=== PATIENT | female | born 1955 | race Caucasian/White ===

== ENCOUNTER → 2023-04-01 14:17 | Outpatient (CLI) | payer OTHER, SELFPAY ==
--- NOTE | ~2023-04-01 | XR_ITS ---
XR knee RT 3V 04/01/2023 14:41 Indication: Right knee pain Procedure: 4 views right knee Comparison: No prior studies for comparison. Findings: There is mild tricompartment osteoarthritis of the right knee. No fracture, subluxation or dislocation. No joint effusion. No foreign bodies. Impression: 1: Mild osteoarthritis of the right knee. Reviewed, dictated and finalized at location B. Impression: 1: Mild osteoarthritis of the right knee.
== END ==
PROVIDERS: PCP Internal Medicine; Visit Provider Internal Medicine
DX: M17.11 Unilateral primary osteoarthritis, right knee (principal)
CPT/HCPCS: 73562

== ENCOUNTER 2024-11-28 15:21 | Outpatient (CLI) | payer OTHER, SELFPAY ==
--- NOTE | ~2024-11-28 | US_ITS ---
EXAM: PELVIC ULTRASOUND HISTORY: N95.0 - Postmenopausal bleeding COMPARISON: Reference is made to the CT examination of the abdomen and pelvis dated 03/04/2014 FINDINGS: UTERUS: 9.4 x 4.6 x 6.cm. The endometrial complex measurement ranges from 14.8 to 19.7 mm, markedly thickened for a patient of this age. The endometrial complex is of mixed echogenicity without increased vascularity containing well-circum scribed anechoic foci, the largest measuring 17 x 16 x 18 mm. Within the lower uterine segment, is a focus of mixed echogenicity measuring 14 x 9 x 9 mm. Unfortun ately, color interrogation of this area was not included on the submitted images. Within the uterus, to the left of midline is a complex focus of mixed echogenicity measuring 20.6 x 2 0.7 x 20.9 mm, possibly a uterine fibroid. Although, one would suspect the a fibroid would be densely calcified in a patient of this age. This may represent postoperative change from rectovaginal fistul a repair. Unfortunately, color interrogation of this area was not included on the submitted images. RIGHT OVARY: Despite prolonged interrogation, the right ovary was not visualized. LEFT OVARY: Despite prolonged interrogation, the left ovary was not visualized. No free fluid is identified within the pelvis. IMPRESSION: Markedly thickened and irregular endometrial complex, for which direct visualization is recommended. Additional findings within the uterus and lower uterine segment which may represent postoperative sosa nge, as detailed above. Reviewed, dictated and finalized at location A. NESS REPRESENTATIVE IMPRESSION: Markedly thickened and irregular endometrial complex, for which direct visualiz ation is recommended. Additional findings within the uterus and lower uterine segment which may repre sent postoperative change, as detailed above.
== END 2024-11-28 15:22 | disposition home or self-care (01) ==
LOC: MICIMG 15:22
PROVIDERS: PCP Internal Medicine; Visit Provider Nurse Practitioner Obstetrics & Gynecology
DX: R93.89 Abnormal findings on diagnostic imaging of other specified body structures (principal); D25.9 Leiomyoma of uterus, unspecified; N95.0 Postmenopausal bleeding
CPT/HCPCS: 76830; 76856

== ENCOUNTER 2025-02-01 13:28 | Outpatient (CLI) | payer OTHER, SELFPAY ==
[2025-02-01 13:55] LABS: Hematocrit 39.6 % (37.0-47.0); Hemoglobin 13.4 g/dL (12.0-15.0)
[2025-02-01 14:10] LABS: Prothrombin Time 13.1 Seconds (11.1-14.7)
[2025-02-01 14:11] LABS: Partial Thromboplastin Time 28.1 Seconds (22.3-36.8)
--- OUTSIDE RECORDS SUMMARY | 2025-02-01 15:02 | XMS_ITS | Clinical Summary ---
Author Organization [facility] Address [address] [place] [address] Care Team Providers Care Marketing Database Consultant Name Role Phone Unavailable Primary Care Provider Unavailabl e Source Comments [facility],non-owned Affiliates and Associated Physician Practices is amultiple site organization consisting of ambulatory clinics and hospital sitesin [place], [place], [place] and [place]. This disclosure is being madepursuant to the Care Everywhere program and may not contain all information available regarding this patient. Last updated 18.[facility] Social History Tobacco Use Types Packs/Day Years Used Date Smoking Tobacco: Never Assessed Sex and Gender Information Value Date Recorded Sex Assigned at Not on file Gender Identity Not on file Sexual Orientation Not on file Last Filed Vital Signs Vital Sign Reading Time Taken Comments Blood Pressure 100/68 04/05/2014 10:22 AM CDT Pulse 85 03/24/2014 5:40 AM CDT Temperature 36.9 C (98.5 F) 04/05/2014 10:22 AM CDT Respiratory Rate 18 03/24/2014 5:40 AM CDT Oxygen Saturation 100% 03/24/2014 5:40 AM CDT Inhaled Oxygen Concentration - - Weight 61.7 kg (136 lb) 03/24/2014 2:36 AM CDT Height 152.4 cm (5') 03/24/2014 2:36 AM CDT Body Mass Index 26.56 03/24/2014 2:36 AM CDT Plan of Treatment Health Maintenance Due Date Last Done Comments BONE DENSITY TESTING 1955 COLOGUARD (AGES 45-75) - COL ON CA SCREENING 1955 COLON MONITORING 1955 COLONOSCOPY - COLON CA SCREENING 1955 CT COLONOGRAPHY - COLON CA SCREENING 1955 Colorectal Cancer Screening 1955 FIT - COLON CA SCREENING 1955 FLEX SIG - COLON CA SCREENING 1955 LIPID TESTING 1955 MAMMOGRAM 1955 HEPATITIS C SCREENING 12/13/1973 DTAP/TDAP/TD VACCINES (1 - Tdap) 1974 PNEUMOCOCCAL VACCINE 50+ (1 of 1 - PCV) 2005 ZOSTER VACCINE (1 of 2) 2005 COVID-19 VACCINE ( - 2023-2 5 season) 2024 INFLUENZA VACCINE (#1) 2024 DEPRESSION SCREENING 11/16/2024 Respiratory Syncytial Virus (RSV) Vaccine Pt: or over 60 yrs (1 - 1-dose 75+ series) 2030 HEPATITIS B VACCINE Aged Out No longe r eligible based on patient's age to complete this topic HIB VACCINE Aged Out No longer eligi ble based on patient's age to complete this topic HPV VACCINE Aged Out No longer eligi ble based on patient's age to complete this topic MENINGOCOCCAL (Group B) VACC INE SHARED DECISION-MAKING Aged Out No longer eligibl e based on patient's age to complete this topic MENINGOCOCCAL GROUPS A/C/Y/W VACCINE Aged Out No longer eligible b ased on patient's age to complete this topic
--- OUTSIDE RECORDS SUMMARY | 2025-02-01 15:02 | XMS_ITS | Encounter Summary ---
Author Organization [facility] Address 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
--- OUTSIDE RECORDS SUMMARY | 2025-02-01 15:02 | XMS_ITS | Encounter Summary ---
Author Organization [facility] Address [address] Lerma: Epic Prelude ADT [place] [address] Care Team Providers Care Gem Technician Name Role Phone Unavailable Primary Care Provider Unavailabl e Encounter Details Date Type Department Care Team (Late st Contact Info) Description 09/03/1994 Outpatient Historical Gregory Doll MD Social History Tobacco Use Types Packs/Day Years Used Date Smoking Tobacco: Never Assessed Comments Unknown Sex and Gender Information Value Date Recorded Sex Assigned at Not on file Legal Sex Female 2:39 AM CLINICAL TRIALS SPECIALIST Gender Identity Not on file Sexual Orientation Not on file documented as of this encounter Plan of Treatment Not on file documented as of this encounter Visit Diagnoses Not on filedocumented in this encounter
--- OUTSIDE RECORDS SUMMARY | 2025-02-01 15:02 | XMS_ITS | Continuity of Care Document ---
Author Organization [facility] Address [address] [facility] [address] [place] [address] Phone Care Team Providers Care Regional Account Manager Name Role Phone Kem Goff Unavailable Unavailable Procedures Procedure Date Office/outpatient Visit, Est Office/outpatient Visit, Est Advance Directives Directive Yes / No Effective Date File Name No Information Encounters Encounter Description Practice Location Reason(s) For Visit Diagnoses Date Provider Providers Copied on Encounter Office/outpat ient Visit, [facility] [place], [address], [place], [place], [id number], tel:[phone] [facility] No Information 0 Denver Brownlee. [facility] [address], [place], [place], [facility], . tel:[phone] Office/outpat ient Visit, [facility] [place], [address] [place] [address] [address], [place], [place], [id number], tel:[phone] [facility] No Information 0 Lambert Resendez. [address] , [address], [place], [place], [facility], [place]. tel:[phone] Family History Family Member Type Diagnosis Age At Onset No Information Payers Payer name Insurance type Covered republican ID Authoriza tion(s) No Information Social History Type Description Quantity Date Captured Comments Sex Female Smoking Status No Information Chief Complaint And Reason For Visit No Information Reason For Referral Reason For Referral No Information History Of Present Illness Encounter Date Complaint History Of Prese nt Illness No Information Functional Status Date Functional Assessmen t No Information Instructions Date Instruction Additional Infor mation No Information Assessments Type Assessment Date No Information Patient Care Teams Name Effective Dates (start - stop) Status Members No Information
--- OUTSIDE RECORDS SUMMARY | 2025-02-01 15:02 | XMS_ITS | Referral Summary ---
Author Organization [facility] Address [address] [place] [address] Care Team Providers Care Rope Laying Machine Operator Name Role Phone Michael Patterson MD Primary Care Provider [phone] Allergies Active Allergy Reactions Criticality Noted Date Comments Erythromycin Nausea & Vomiting Low 11/19/2021 Medications ramipriL (ALTACE) 10 mg capsule Take 1 capsule (10 mg total) by mouth daily 1 Active SUMAtriptan (IMITREX) 100 mg tablet TAKE 1 TABLET BY MOUTH AT ONSET OF HEADACHE, MAY REPEAT X1 IN 2 HOURS IF NEEDED 1 Active celecoxib (CeleBREX) 200 mg capsule Take 1 capsule (200 mg total) by mouth 2 (two) times a day 1 Active traMADoL (ULTRAM) 50 mg tablet TAKE 1 TABLET BY MOUTH EVERY 8 HOURS NEEDED FOR PAIN. MUST LAST FOR 60 DAYS. 1 Active metroNIDAZOLE (METROGEL) 1 % gel 1 Active hydroCHLOROthia zide (HYDRODIURIL) 25 mg tablet 1 Active levothyroxine (SYNTHROID) 50 mcg tablet 1 Active estradioL (ESTRACE) 0.01 % (0.1 mg/gram) vaginal cream INSERT ONE GRAM VAGINALLY TWICE WEEKLY 1 Active rosuvastatin (CRESTOR) 10 mg tablet Take 1 tablet (10 mg total) by mouth daily 3 Active Active Problems No known active problems Immunizations Immunization Administration Dates Next Due Influenza, Quadrivalent, Mariola l Culture-based MDCK, Preservative Free, Antibiotic Free, Intramuscular 09/05/2020 Influenza, Trivalent, IM (MDV) 09/21/2013,2011 Tdap 10/21/2012 Social History Tobacco Use Types Packs/Day Years Used Date Smoking Tobacco: Never Smokeless Tobacco: Never Tobacco Cessation:Counseling Given: Not Answered Personal Safety Answer Date Recorded Getting School Help Needed Not on file 11/12 Comments Unknown Sex and Gender Information Value Date Recorded Sex Assigned at Not on file Legal Sex Female 8:18 AM PRODUCTION EXPERT Gender Identity Not on file Sexual Orientation Not on file Last Filed Vital Signs Vital Sign Reading Time Taken Comments Blood Pressure 161/88 12/16/2022 8:11 AM PRODUCTION EXPERT Pulse 76 12/16/2022 8:11 AM PRODUCTION EXPERT Temperature - - Respiratory Rate - - Oxygen Saturation - - Inhaled Oxygen Concentration - - Weight 72.6 kg (160 lb) 04/09/2023 5:07 PM CDT Height 152.4 cm (5') 04/09/2023 5:07 PM CDT Body Mass Index 31.25 04/09/2023 5:07 PM CDT Plan of Treatment Not on file Insurance [facility] CHOICE PLUS [facility] CHO[facility] PLUS Care Teams Rope Laying Machine Operator Relationship Specialty Start Date End Date Michael Pattreson MD [address] [facility] [address] [place], [place] [id number] PCP - General Internal Medicine 10/16/21
--- OUTSIDE RECORDS SUMMARY | 2025-02-01 15:02 | XMS_ITS | Encounter Summary ---
Author Organization [facility] Address 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
--- OUTSIDE RECORDS SUMMARY | 2025-02-01 15:02 | XMS_ITS | Clinical Summary ---
Author Organization [facility] Address [address] [place] [address] Phone Care Team Providers Care Organ Tuner Name Role Phone Unavailable Primary Care Provider Unavailabl e Immunizations Immunization Administration Dates Next Due (PFIZER)(12 YR UP) COVID-19 VACCINE - EMERGENCY USE AUTHORIZATION, MRNA, [id number](PF) 30 MCG/0.3 ML IM SUSP 12/05/2020,11/14/2020 Social History Tobacco Use Types Packs/Day Years Used Date Smoking Tobacco: Never Assessed Comments Unknown Sex and Gender Information Value Date Recorded Sex Assigned at Not on file Legal Sex Female 2:39 AM CHAIR PAD MAKER Gender Identity Not on file Sexual Orientation Not on file Plan of Treatment Health Maintenance Due Date Last Done Comments DTAP/TDAP/TD VACCINES (1 - Tdap) 1974 BREAST CANCER SCREENING 1995 COLORECTAL SCREENING 2000 Colorectal Cancer Screening 2000 FIT-DNA Q 3 years 2000 FIT/FOBT Q 1 year 2000 Flex Sig/CT Colonography Q 5 years 2000 PNEUMOCOCCAL VACCINE 50+ YEA RS (1 of 1 - PCV) 2005 ZOSTER VACCINE (1 of 2) 2005 OSTEOPOROSIS SCREENING 2020 INFLUENZA VACCINE (#1) 2024 COVID-19 Vaccine (3 - 2023-25 season) 2024, 11/14/2020 RSV VACCINE (60+ or ) (1 - 1-dose 75+ series) 2030
--- OUTSIDE RECORDS SUMMARY | 2025-02-01 15:02 | XMS_ITS | Clinical Summary ---
Author Organization [facility] Address [address] [place] [address] Care Team Providers Care Protein Purification Scientist Name Role Phone Michael Patterson MD Primary Care Provider [phone]- [phone] Allergies Active Allergy Reactions Criticality Noted Date [...] Influenza, Trivalent, IM (MDV) 09/21/2013,2011 Tdap 10/21/2012 Surgical History Surgery Date Site/Laterality Comments SECTION CHOLECYSTECTOMY Medical History Medical History Date Comments Arthritis Clotting disorder Migraines Hypertension Thyroid disease Kidney stone Family History Medical History Relation Name Comments Alcohol abuse Father Guzman Arthritis Father Guzman COPD Father Guzman Hearing loss Father Guzman Heart attack Father Guzman Heart disease Father Guzman Hyperlipidemia Father Guzman Hypertension Father Guzman Bleeding Disorder Maternal Grandmother [place] Bleeding Disorder Mother Radha Hypertension Mother Radha Bleeding Disorder Sister Rogers Rashes / Skin problems Sister Rogers Depression Son Bimal Relation Name Status Comments Father Guzman Maternal Grandmother [place]avle Mother Radha Sister Rogers [place] Social History Tobacco Use Types Packs/Day Years Used Date Smoking Tobacco: Never Smokeless Tobacco: Never Tobacco Cessation:Counseling Given: Not Answered Personal Safety Answer Date Recorded Getting School Help Needed Not on file 11/12 Comments Unknown Sex and Gender Information Value Date Recorded Sex Assigned at Not on file Legal Sex Female 8:18 AM GRIDDLE ATTENDANT Gender Identity Not on file Sexual Orientation Not on file Obstetrics History Last Filed Vital Signs Vital Sign Reading Time Taken Comments Blood Pressure 161/88 12/16/2022 8:11 AM GRIDDLE ATTENDANT Pulse 76 12/16/2022 8:11 AM GRIDDLE ATTENDANT Temperature - - Respiratory Rate - - Oxygen Saturation - - Inhaled Oxygen Concentration - - Weight 72.6 kg (160 lb) 04/09/2023 5:07 PM CDT Height 152.4 cm (5') 04/09/2023 5:07 PM CDT Body Mass Index 31.25 04/09/2023 5:07 PM CDT Plan of Treatment Health Maintenance Due Date Last Done Comments Breast Cancer Screening-Mammogram 1955 Colon Cancer Screening-Colonoscopy 1955 Depression Screening 1955 Fall Risk Assessment 1955 Hepatitis C Screening 1955 Osteoporosis Screening-Bone Density Scan 1955 Hepatitis B Screening 1973 Pneumococcal vaccine 65+ (1 of 1 - PCV) 2005 Zoster Vaccine (1 of 2) 2005 Well Visit 65+ 2020 DTaP/Tdap/Td Vaccine (2 - Td or Tdap) 10/21/2022 12/ 04/2012 Covid-19 Vaccine ( season) 2024 08/16/2021, 12/05/2020, 11/14/2020 Influenza Vaccine (#1) 2024 , 09/21/2013, 10/21/2012 Insurance [facility] CHO[facility] PLUS [facility] HMO/PPO Address: [address] [address] [place] [address] [facility] CHOICE PLUS [facility] HMO/PPO Address: [address] [address] [place] [address] Care Teams Protein Purification Scientist Relationship Specialty Start Date End Date Michael Patterson MD [address] [facility] [address] [place] [address] PCP - General Internal Medicine 10/16/21
[2025-02-01 21:29] LABS: Anion Gap 11 mmol/L (4-12); Blood Urea Nitrogen 25 mg/dL (7-17); Calcium 9.7 mg/dL (8.4-10.2); Carbon Dioxide 25 mmol/L (22-30); Chloride 99 mmol/L (98-107); Estimated Glomerular Filt Rate 58; Glucose 124 mg/dL (65-110); Potassium 3.9 mmol/L (3.4-5.0); Sodium 135 mmol/L (137-145)
== END 2025-02-01 13:29 | disposition home or self-care (01) ==
LOC: ANHSURGERY 13:32
PROVIDERS: Anesthesiology; PCP Internal Medicine; Visit Provider Obstetrics & Gynecology
DX: D68.00 Von Willebrand disease, unspecified (principal); Z79.899 Other long term (current) drug therapy
CPT/HCPCS: 36415; 80048; 85014; 85018; 85610; 85730

== ENCOUNTER 2025-02-08 00:19 | Day surgery (SDC) | payer OTHER, SELFPAY ==
[2025-01-25 09:24] VITALS: BMI 31.8
--- NOTE | 2025-01-25 09:33 | PC.NURSE ---
Report to the Outpatient Waiting Room, entrance under the green pavilion located off [facility], at time __0600am on date __02/08/25 . Planned Procedure Time: _0730am .? Time changes happen often and if your time is changed the preop area will call you the afternoon before. - You and your visitor will be asked to self-screen and do not enter if you have any COVID symptoms. Please call surgeon if you need to reschedule. - A mask is optional within the hospital at this time. Patients may have clear liquids (water, carbonated beverages, clear teas, apple juice) until 3 hours prior to surgery with a maximum of 20 ounces. - No food from midnight until time of surgery and no smoking, or chewing tobacco (or any form of nicotine). No chewing gum, candy or mints.(0430am) Take only the following medications with a SIP of water on the morning of surgery: ____Levothyroxine, Cyclobenzaprine if needed, Tramadol if needed DO NOT STOP ANY OF YOUR OTHER PRESCRIPTION MEDICATIONS PRIOR TO SURGERY EXCEPT THE FOLLOWING Pt to check with Dr Raymundo regarding NSAIDS instructions preop. Hold all vitamins and supplements for 3 days per anesthesiologist.Date to take last dose____02/04/25 Medications to discontinue per physician __Nonee Date to take last dose____ __None Please no make-up, nail georgian, hairspray, perfume, deodorant, or body powder the day of surgery.? No jewelry (including any body piercings) or valuables the day of surgery, leave them at home.? Please take a shower or bath the night before, or the morning of, surgery with an antibacterial soap.? Wear comfortable, loose fitting clothing.? - Jewelry must be removed prior to entering the operating room.? Rings and piercings that are not removed may be cut off. - The hospital will not accept responsibility for valuables.? - Please leave all valuables, including medications, at home the day of surgery. If you are going home after surgery, a licensed local company intermodal truck driver must drive you home.? - NO public transportation without another adult if you receive anesthesia. - We recommend that an adult stay with you for 24 hours following discharge. - We also recommend that you do not drive, make important decision, drink alcoholic beverages, or take any drugs that were not prescribed by your health care provider for at least 24 hours after your discharge time. Follow any additional instructions given to you from your surgeon. Telephone instructions given to ___Patient and asked if any additional questions and then verbalized understanding. Patient advised to call surgeon office or pre surgery nurse liaison [phone] if any additional questions.
--- OUTSIDE RECORDS SUMMARY | 2025-02-08 00:23 | XMS_ITS | Encounter Summary ---
Author Organization [employer] Address [address] [place] [address] Care Team Providers Care Forest Pathology Teacher Name Role Phone Unavailable Primary Care Provider Unavailabl e Encounter Details Date Type Department Care Team (Latest Contact Info) Description 01/07/1999 Inpatient Historical HIS [place] [address] [place] [address] Previous delivery, delivered, with or without mention of antepartum condition (Primary Dx) Social History Tobacco Use Types Packs/Day Years Used Date Smoking Tobacco: Never Assessed Comments Unknown Sex and Gender Information Value Date Recorded Sex Assigned at Not on file Legal Sex Female 2:39 AM OFFICE ASSISTANCE Gender Identity Not on file Sexual Orientation Not on file documented as of this encounter Plan of Treatment Not on file documented as of this encounter Visit Diagnoses Diagnosis Previous delivery, delivered, with or without mention of antepartum condition- Primary documented in this encounter
--- OUTSIDE RECORDS SUMMARY | 2025-02-08 00:23 | XMS_ITS | Encounter Summary ---
Author Organization [facility] Address [address] Lerma: Epic Prelude ADT [place] [address] Care Team Providers Care Field Examiner Name Role Phone Unavailable Primary Care Provider Unavailabl e Encounter Details Date Type Department Care Team (Late st Contact Info) Description 09/03/1994 Outpatient Historical Gregory Doll MD Social History Tobacco Use Types Packs/Day Years Used Date Smoking Tobacco: Never Assessed Comments Unknown Sex and Gender Information Value Date Recorded Sex Assigned at Not on file Legal Sex Female 2:39 AM PULLER OUT Gender Identity Not on file Sexual Orientation Not on file documented as of this encounter Plan of Treatment Not on file documented as of this encounter Visit Diagnoses Not on filedocumented in this encounter
--- OUTSIDE RECORDS SUMMARY | 2025-02-08 00:23 | XMS_ITS | Clinical Summary ---
Author Organization [facility] Address [address] [place] [address] Care Team Providers Care Handwriting Expert Name Role Phone Unavailable Primary Care Provider Unavailabl e Source Comments [facility],non-owned Affiliates and Associated Physician Practices is amultiple site organization consisting of ambulatory clinics and hospital sitesin [place], [place], [place] and [place]. This disclosure is being madepursuant to the Care Everywhere program and may not contain all information available regarding this patient. Last updated 18.[facility] Social History Tobacco Use Types Packs/Day Years [...]
--- OUTSIDE RECORDS SUMMARY | 2025-02-08 00:23 | XMS_ITS | Referral Summary ---
Author Organization [facility] Address [address] [place] [address] Care Team Providers Care Equipment Maintenance Superintendent Name Role Phone Michael Patterson MD Primary Care Provider [phone] Allergies Active Allergy Reactions Criticality Noted Date [...] on file Legal Sex Female 8:18 AM SOLAR INSTALLER PV Gender Identity Not on file Sexual Orientation Not on file Last Filed Vital Signs Vital Sign Reading Time Taken Comments Blood Pressure 161/88 12/16/2022 8:11 AM SOLAR INSTALLER PV Pulse 76 12/16/2022 8:11 AM SOLAR INSTALLER PV Temperature - - Respiratory Rate - - Oxygen Saturation - - Inhaled Oxygen Concentration - - Weight 72.6 kg (160 lb) 04/09/2023 5:07 PM CDT Height 152.4 cm (5') 04/09/2023 5:07 PM CDT Body Mass Index 31.25 04/09/2023 5:07 PM CDT Plan of Treatment Not on file Insurance [facility] CHO[facility] PL[facility] H[facility]PPO Address: [facility] [address] [place] [address] [facility] CHO[facility] [address] Care Teams Equipment Maintenance Superintendent Relationship Specialty Start Date End Date Michael Patterson MD [address] [facility] [address] [place], [place] [id number] PCP - General Internal Medicine 10/16/21
--- OUTSIDE RECORDS SUMMARY | 2025-02-08 00:24 | XMS_ITS | Clinical Summary ---
Author Organization [facility] Address [address] [place] [place] [address] Phone Care Team Providers Care Window Trimmer Name Role Phone Unavailable Primary Care Provider Unavailabl e Immunizations Immunization Administration Dates Next Due (PFIZER)(12 YR UP) COVID-19 VACCINE - EMERGENCY USE AUTHORIZATION, MRNA, [id number](PF) 30 MCG/0.3 ML IM SUSP 12/05/2020,11/14/2020 Social History Tobacco Use Types Packs/Day Years Used Date Smoking Tobacco: Never Assessed Comments Unknown Sex and Gender Information Value Date Recorded Sex Assigned at Not on file Legal Sex Female 2:39 AM SECURITY SHIFT MANAGER Gender Identity Not on file Sexual Orientation [...]
--- OUTSIDE RECORDS SUMMARY | 2025-02-08 00:24 | XMS_ITS | Continuity of Care Document ---
Author Organization [facility] Address [address] [facility] [address] [facility] [address] [place] [address] Phone Care Team Providers Care Farm Crew Leader Name Role Phone Kem Goff Unavailable Unavailable Procedures Procedure Date Office/outpatient Visit, Est Office/outpatient Visit, Est Advance Directives Directive Yes / No Effective Date File Name No Information Encounters Encounter Description Practice Location Reason(s) For Visit Diagnoses Date Provider Providers Copied on Encounter Office/outpat ient Visit, [facility], [address], [place], [place], [id number], tel:[phone] [facility] No Information 0 Denver Brownlee. [facility] [address], [place], [place], [facility], . tel:[phone] Office/outpat ient Visit, [facility], [address] [place] [address] [address], [place], [place], [id number], tel:[phone] [facility] No Information 0 Lambert Resendez. [address] [facility] , [address], [place], [place], [facility], [place]. tel:[phone] Family History Family Member Type Diagnosis Age At Onset No Information Payers Payer name Insurance type Covered green party ID Authoriza tion(s) No Information Social History [...]
--- OUTSIDE RECORDS SUMMARY | 2025-02-08 00:24 | XMS_ITS | Clinical Summary ---
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 Gender Identity Not on file Sexual Orientation Not on file Obstetrics History Last Filed Vital Signs Vital Sign Reading Time Taken Comments Blood Pressure 161/88 12/16/2022 8:11 AM ASSET MANAGEMENT LEAD Pulse 76 12/16/2022 8:11 AM ASSET MANAGEMENT LEAD Temperature - - Respiratory Rate - - [...] Vaccine (#1) 2024 , 09/21/2013, 10/21/2012 Insurance [facility] CHOICE PLUS [facility] CHOICE PLUS Care Teams Lombardi Developer Relationship Specialty Start Date End Date Michael Patterson MD [address] [facility] [address] [place] [address] PCP - General Internal Medicine 10/16/21
--- OUTSIDE RECORDS SUMMARY | 2025-02-08 00:24 | XMS_ITS | Encounter Summary ---
Author Organization [facility] Address 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
--- NOTE | 2025-02-08 07:18 | WPDHPUPDATE1 ---
History and Physical Update Update Date/Time: 02/08/25 07:18 History and Physical has been reviewed, including an updated exam of the patient. There are NO changes in the patient's condition. Risks, benefits, and alternatives have been discussed and questions answered. Patient agrees to proceed with procedure.
[2025-02-08 07:23] VITALS: BP 155/79; PULSE 68; TEMP 36.4; O2SAT 98; BMI 32.2
[2025-02-08] MEDS: ACETAMINOPHEN 500 MG TABLET 1000 MG PO (07:26)
--- NOTE | 2025-02-08 07:28 | P.PNAN_ITS ---
Anes - Initial Pre Proc Eval Procedure: Operation Date: 02/08/25 07:30 Proposed Procedures p Hysteroscopy Dilation and Curettage with Removal of Any Endometrial Lesions if Necessary - Varun Raymundo MD Date/Time: 02/08/25 07:28 Surgeon: Varun Raymundo MD Pre Op Diagnosis: post menopausal bleeding Patient Data Age: 69 Gender: F Height: 1.52 m Weight: 74.8 kg Last Vital Signs Temp 97.6 F 02/08/25 07:23 Pulse 68 02/08/25 07:23 BP 155/79 H 02/08/25 07:23 Pulse Ox 98 02/08/25 07:23 O2 Del Method Room Air 02/08/25 07:23 Allergies Allergy/AdvReac Type Severity Reaction Status Date / Time erythromycin base Allergy Intermediate Vomiting Verified 02/08/25 07:22 cimetidine AdvReac Severe panic Verified 02/08/25 07:22 attack Home Medications ?Medication ?Instructions ?Recorded ?Confirmed ?Type fexofenadine 180 mg tablet 180 mg PO DAILY 02/06/20 02/01/25 History ([facility] Allergy) sumatriptan succinate 100 mg tablet 100 mg PO .COMPLEX #10 tabs 11/06/21 02/01/25 Rx cyclobenzaprine 10 mg tablet 10 mg PO .HS PRN muscle spasm #30 08/26/23 02/01/25 Rx tabs zolpidem 5 mg tablet (Ambien) 5 mg PO QHS #30 tabs 12/02/23 02/01/25 Rx hydrochlorothiazide 25 mg tablet 25 mg PO DAILY #90 tabs 04/03/24 02/01/25 Rx levothyroxine 50 mcg tablet 50 mcg PO DAILY #90 tabs 04/03/24 02/08/25 Rx (Synthroid) tramadol 50 mg tablet 50 mg PO Q8H PRN pain #90 tabs 11/25/24 02/01/25 Rx rosuvastatin 10 mg tablet 10 mg PO DAILY #90 tabs 12/08/24 02/01/25 Rx ramipril 10 mg capsule 10 mg PO DAILY #90 caps 12/16/24 02/01/25 Rx celecoxib 200 mg capsule (Celebrex) 200 mg PO BID #180 caps 01/09/25 02/01/25 Rx tretinoin 0.05 % topical cream 1 applic topical 3XW #45 grams 01/09/25 02/01/25 Rx (Retin-A) estradiol 0.01% (0.1 mg/gram) 1 g vaginal 2XW #42.5 grams 01/10/25 02/01/25 Rx vaginal cream metronidazole 1 % topical gel 1 applic topical DAILY #60 grams 01/16/25 02/01/25 Rx (Metrogel) mecobalamin (vitamin B12) 1,000 1,000 mcg PO DAILY 01/25/25 02/01/25 History mcg chewable tablet Patient hx anesthesia problems: none Family hx anesthesia problems: none Results Review: All pre-operative results and documents have been reviewed as part of the pre- operative evaluation. [facility] Past Medical History Medical History COVID-19 Von Willebrand disease Hypothyroidism Migraine Hypertension Irritable bowel syndrome Surgical History Surgical History History of rectal surgery repair of fistula H/O vaginal surgery Repair of fistula Hx of ovarian cystectomy S/P cholecystectomy S/P dilation and curettage H/O section Family History Family History Sibling Family history of blood dyscrasia Patient's brother is in good health Von Willebrand disease Lung cancer Mother Family history of blood dyscrasia Heart disease Von Willebrand disease Father Acute myocardial infarction Heart disease Social History Social History Smoking status: Never smoker Second hand tobacco smoke exposure: No Alcohol intake: current Drinks per week: 7 Substance use: never Substance use type: does not use Do You Feel Safe in your Home?: Yes Lack of Transportation: No Lack of Food: Never True Current Housing: I Have Housing Concerned About Future Housing: No Difficulty Paying Gas/Electric Bills: No Difficulty Paying for Meds: No Currently Unemployed: No Education: Master's Degree or Higher Difficulty w/ Childcare or Family Care: No Living arrangements: with family Additional living arrangements comments: Occupation/Education: occupation Additional occupation/education comments: pharmacist Gender identity (if verbalized by the patient): Female Spiritual care concerns: No Anes - Eval Final PreProcedure Day of Procedure 02/08/25 07:28 Patient weight: obese Heart: regular rate and rhythm Lungs: clear to auscultation Airway: Mallampati scale class II Neurological: alert and oriented Last oral intake: >/= 8 hours ASA classification: III Emergent: no Anesthetic plan: proceed Anesthesia type and monitoring: general GIVS and standard monitoring Results Review: All pre-operative results and documents have been reviewed as part of the pre- operative evaluation. Informed Consent: The patient's anesthetic plan and its attendant risks and benefits were discussed with the patient/family/POA. Questions were solicited and answers provided to the satisfaction of the patient/family/POA.
[2025-02-08] MEDS: LACTATED RINGERS 1,000 ML 30 ML IV CONT (07:33)
[2025-02-08] MEDS: ceFAZolin 2 GM/D5W 50 ML 2 GM/50 ML BAG IVPB (07:35)
[2025-02-08] MEDS: LIDOCAINE 1% LOCAL INJ 20 ML VIAL 10 ML INFILTRATE (07:35)
--- NOTE | 2025-02-08 08:00 | W.PM.PROC2 ---
Procedure Note - Detailed Date of Procedure 02/08/25 Pre-op Diagnosis post menopausal bleeding, endometrial polyp Post-op Diagnosis Same Procedure Performed Hysteroscopy with removal of endometrial lesion and curettage Surgeon Varun Raymundo MD Anesthesia MAC and Local Indications Postmenopausal bleeding and endometrial polyp Findings Uterus sound to 9cm, large endometrial polyp, removed, the rest of cavity atrophic appearing Description of Procedure After informed consent was obtained patient was taken to the operating room and adequate IV sedation was administered. Attention was turned to the vagina. Speculum was inserted. Single-tooth tenaculum placed on the anterior lip of the cervix.10 cc of 1% lidocaine was injected at the cervical vaginal interface at the 2 and 5 and 8 and 10 position. The uterus was sounded to 9 cm. The cervix was dilated to an 4 Harrell dilator. The hysteroscope was inserted into the cavity. Large polyp noted. The hysteroscope was removed. The Aveta instrument was used to remove the polyp completely. A curettage performed with minimal tissue obtained. The hysteroscope was removed the single-tooth tenaculum was removed hemostasis was noted at the tenaculum site. Sponge count correct. The patient taken to recovery in stable condition. Estimated Blood Loss 5 Packing No Pathology Yes (endometrial shavings and curettings) Complications No immediate complications Condition Stable Disposition Same day [facility] Billing Surgery - Charge Forward: Surgery Billing
[2025-02-08 08:07] VITALS: BP 117/64; PULSE 64; RESP 12; O2SAT 100
[2025-02-08] MEDS: oxyCODONE HCL (*CRX) 5 MG TAB IR PO (08:34)
[2025-02-08 08:35] VITALS: BP 152/81; PULSE 56; RESP 12
[2025-02-08] MEDS: KETOROLAC 15 MG/ML VIAL (*BKC) IV PUSH (08:39)
[2025-02-08 09:00] VITALS: BP 139/72; PULSE 64; RESP 12
[2025-02-08 09:30] VITALS: BP 128/70; PULSE 58; RESP 12
== END 2025-02-08 09:45 | disposition home or self-care (01) ==
PROVIDERS: PCP Internal Medicine; Visit Provider Obstetrics & Gynecology
PROC: 0U5B8ZZ Destruction of Endometrium, Via Natural or Artificial Opening Endoscopic (ICD-10-PCS; CPT 58563; principal; 2025-02-08 07:30)
DX: N84.0 Polyp of corpus uteri (principal); E03.9 Hypothyroidism, unspecified; I10 Essential (primary) hypertension; K58.9 Irritable bowel syndrome, unspecified; D68.00 Von Willebrand disease, unspecified; E66.9 Obesity, unspecified; Z68.32 Body mass index [BMI] 32.0-32.9, adult; Z79.891 Long term (current) use of opiate analgesic; Z79.1 Long term (current) use of non-steroidal anti-inflammatories (NSAID); Z79.899 Other long term (current) drug therapy; Z98.890 Other specified postprocedural states; Z90.49 Acquired absence of other specified parts of digestive tract; Z80.1 Family history of malignant neoplasm of trachea, bronchus and lung; Z82.49 Family history of ischemic heart disease and other diseases of the circulatory system
CPT/HCPCS: 58558; 88305; A9270; J0690; J1885; J2003; J2250; J2405; J2704; J7120